=== PATIENT | female | born 1985 ===

== ENCOUNTER 2024-11-08 19:55 | Emergency (ER) | payer OTHER ==
[2024-11-08 20:07] VITALS: BP 133/84; PULSE 92; RESP 20; TEMP 99.1; BMI 43.4
[2024-11-08] MEDS ORDERED: ACETAMINOPHEN 325 MG TABLET (FP) PO ONE (20:55)
[2024-11-08] MEDS ORDERED: ACETAMINOPHEN INJECTION 100 ML ONE (20:56)
[2024-11-08] MEDS ORDERED: POLYETHYLENE GLYCOL (HEALTHYLAX) 3350 17 GM PACKET ONE (20:56)
[2024-11-08] MEDS: SODIUM CHLORIDE 0.9% 500 ML INFUS.BAG IV ONE (21:14)
[2024-11-08] MEDS: ACETAMINOPHEN 1000 MG/100 ML BAG IVPB ONE (21:15)
[2024-11-08] MEDS: POLYETHYLENE GLYCOL (HEALTHYLAX) 3350 17 GM PACKET PO SCH (21:15)
[2024-11-08] MEDS ORDERED: MAGNESIUM CITRATE 300 ML BOTTLE ONE (21:15)
[2024-11-08] MEDS: MAGNESIUM CITRATE 300 ML BOTTLE PO ONE (21:15)
[2024-11-08 21:22] LABS: ABSOLUTE IMMATURE GRANULOCYTES 0.06 x10^3/uL (0.0-0.031); BASOPHILS # 0.04 x10^3/uL (0.01-0.08); EOSINOPHIL % 0.6 % (0.7-5.8); EOSINOPHILS # 0.09 x10^3/uL (0.04-0.36); MCHC 32.9 g/dl (32.2-35.5); MEAN CELL VOLUME 88.7 fl (79.4-94.8); MEAN PLT VOLUME 9.6 fl (9.4-12.3); MONOCYTE # 0.92 x10^3/uL (0.24-0.86); MONOCYTE % 6.2 % (4.7-12.5); RDW 13.2 % (12.1-16.8)
[2024-11-08 21:42] LABS: GLUCOSE,RANDOM 92.0 mg/dL (74-106); TOT PROT 7.7 g/dl (6.4-8.2)
[2024-11-08 21:43] LABS: CO2 17.0 mmol/L (21-32)
[2024-11-08 21:45] LABS: ALK PHOS 58.0 U/L (40-150)
[2024-11-08 21:47] LABS: SGOT/AST 29.0 U/L (5-34); SGPT/ALT 22.0 U/L (0-55)
[2024-11-08 21:48] LABS: CREATININE 0.78 mg/dL (0.55-1.3)
[2024-11-08 22:18] LABS: URINE APPEARANCE CLEAR; URINE BILIRUBIN NEGATIVE (NEGATIVE); URINE COLOR YELLOW; URINE GLUCOSE (UA) NEGATIVE (NEGATIVE); URINE KETONE 2+ (NEGATIVE); URINE LEUK ESTERASE NEGATIVE (NEGATIVE); URINE NITRITE NEGATIVE (NEGATIVE); URINE PROTEIN NEGATIVE (NEGATIVE); URINE UROBILINOGEN 0.2 mg/dL (0.2-1.0)
[2024-11-09] MEDS: LACTULOSE 20 GM/30 ML UDC (FOR ORAL USE ONLY) PO ONE (00:26)
== END 2024-11-09 01:46 | disposition home or self-care (01) ==
LOC: JER 19:55
PROC: 3E033NZ Introduction of Analgesics, Hypnotics, Sedatives into Peripheral Vein, Percutaneous Approach (ICD-10-PCS; principal; 2024-11-08)
DX: K59.00 Constipation, unspecified (principal); R11.0 Nausea; R10.30 Lower abdominal pain, unspecified; R30.9 Painful micturition, unspecified
CPT/HCPCS: 36415; 74018-TC-FY; 80053; 81003; 83735; 84703; 85025; 87086; 99285-25